=== PATIENT | male | born 2000 | race Caucasian/White ===

== ENCOUNTER 2024-11-11 17:05 | Inpatient (IN) | payer BC, SELFPAY ==
--- NOTE | 2024-11-11 17:15 | ED_ITS ---
HPI - General Adult General Chief complaint: Psychiatric Symptoms Stated complaint: SI w/ plan Time Seen by Provider: 11/11/24 17:12 Source: patient and EMS Mode of arrival: EMS Limitations: no limitations History of Present Illness ED Provider: PRATIK BLUE PA-C HPI narrative: 24 year old male with pmhx significant for anxiety and depression presents to the ED today for evaluation of increasing suicidal ideation x1 week. Reports history of anxiety and depression x7 years. He is currently on medication for this. Denies any recent medication adjustments. 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 Admits to SI over the past week, worsening today. Reports plan to slit his wrists with his pocket knife in his room. Admits to prior self-harm however denies any previous SI attempts. Denies HI. Admits to occasional marijuana use. Denies any other illicit substance use. Reports rare EtOH consumption. Last consumed alcohol approximately 1 month ago. Denies AH/VH/TH. Denies any physical concerns at present. Related Data Home Medications ?Medication ?Instructions ?Recorded ?Confirmed bupropion HCl 150 mg tablet,12 hr 150 mg PO BID 11/11/24 11/11/24 sustained-release escitalopram oxalate 10 mg tablet 10 mg PO BEDTIME 11/11/24 11/11/24 estradiol 2 mg tablet 2 mg PO BEDTIME 11/11/24 11/11/24 estradiol 2 mg tablet 4 mg PO DAILY 11/11/24 11/11/24 gabapentin 300 mg capsule 300 mg PO BEDTIME 11/11/24 11/11/24 spironolactone 100 mg tablet 100 mg PO BEDTIME 11/11/24 11/11/24 spironolactone 100 mg tablet 200 mg PO DAILY 11/11/24 11/11/24 Allergies Allergy/AdvReac Type Severity Reaction Status Date / Time No Known Allergies Allergy Verified 11/11/24 17:31 Review of Systems 2 Review of Systems: Yes all other systems are reviewed and are negative PMFSH Past Medical History Attestation statement: The following information was validated with the patient. Source: old records reviewed and nursing notes reviewed Social History Social History Household Members: None Housing: Other Housing Other:: college dorm room Do you presently have visiting nurse or other home services: No Patient Tobacco Use Status: Never used Tobacco Smoked in Last 30 Days: No Use of substances other than those prescribed or required for medical reasons: Yes Substance Use Type: Marijuana Substance Use Frequency: Occasionally Last Used Substance: Just Prior to Admission Currently Displaying Signs/Symptoms of Drug Intoxication Withdrawal: No Any prior treatment program specific to substance use: No Advance Directives: No Advance Directives Information Provided: No Do you have a plan to hurt others: No Plan Recently lost weight without trying: No Eating poorly because of decreased appetite: No Nutrition Risks: No Nutritional Risk Poor oral hygiene: No Physical Exam ED Vital Signs: Vital Signs - 24 hr 11/11/24 22:21 11/12/24 06:04 11/12/24 14:25 Temperature 97.6 F 97.6 F 97.7 F Pulse Rate 81 60 70 Respiratory Rate 16 18 16 Blood Pressure 125/85 112/67 116/66 Pulse Oximetry 97 98 99 Oxygen Delivery Method Room Air Room Air Room Air BMI result Body Mass Index 30.7 General: Well appearing, in no acute distress. Skin: Warm, dry, intact. No rashes or lesions. Head: Normocephalic, atraumatic. EENT: Hearing is intact b/l. Conjunctiva clear. PERRLA. EOM intact. Moist mucous membranes.? Neck: Supple without LAD Cardiac: Chest wall symmetric. RRR Lungs: Normal respiratory effort without accessory muscle use. CTA bilaterally Abdomen: Soft, non-tender, non-distended Back: No midline spinous or paraspinal tenderness. No step off deformity. Ext: Upper and lower extremities atraumatic, without tenderness, deformity, swelling or erythema Neuro: AOx3. Normal speech. CN 2-12 grossly intact. Ambulating with steady gait. Course Course Course Narrative: CBC without leukocytosis or left shift. no anemia, h&h stable. chemistry without acute electrolyte abnormality requiring intervention. ethanol/ salicylates/ acetaminophen undetectable. UA/UDS pending. > MR reviewed and completed. physician observation initiaed pending care team/ disposition. Reevaluation(s) Reevaluation #1: 0009 -- spoke w/ Kelly from care team. patient will be inpatient bedsearch. Medications Administered Generic Name Dose Route Start Last Admin Trade Name Freq PRN Reason Stop Dose Admin Bupropion HCl 300 mg 11/12/24 09:00 11/12/24 09:00 Bupropion Hcl Xl 300 Mg Tab.Er.24h PO 300 mg DAILY CARLITOS Administration Escitalopram Oxalate 10 mg 11/11/24 18:15 11/12/24 09:00 Escitalopram Oxalate 10 Mg Tablet PO 10 mg DAILY CARLITOS Administration Estradiol 2 mg 11/12/24 21:00 11/11/24 22:21 Estradiol 0.5 Mg Tablet PO 2 mg BEDTIME CARLITOS Administration Estradiol 4 mg 11/12/24 09:00 11/12/24 08:59 Estradiol 0.5 Mg Tablet PO 4 mg DAILY CARLITOS Administration Gabapentin 300 mg 11/11/24 21:00 11/11/24 22:22 Gabapentin 300 Mg Capsule PO 300 mg BEDTIME CARLITOS Administration Spironolactone 200 mg 11/12/24 09:00 11/12/24 08:59 Spironolactone 25 Mg Tablet PO 200 mg DAILY CARLITOS Administration Protocol Medical Decision Making Medical Decision Making [facility] Narrative: 24 year old male with pmhx significant for anxiety and depression presents to the ED today for evaluation of increasing suicidal ideation x1 week. Vital signs stable. He is nontoxic-appearing and in no acute distress. Differential diagnosis includes anemia, electrolyte abnormality, mood disorder, anxiety, depression, SI Presentation not consistent with acute organic causes to include delirium, dementia or drug induced disorders (acute ingestions or withdrawal; no evidence of toxidrome).? Given the H&P, I suspect this patient is suicidal and will require observation. Will consult care team to evaluate the patient. Will also obtain labs for medical clearance. Plan: labs, EKG, ASA/APAP levels, ETOH level, UDS, care team consultation, reassessment Differential Diagnosis Differential Diagnoses: The differential diagnosis associated with the presentation includes as above. Admission/Observation Consideration of admission/observation: Escalation of care including admission/observation considered Lab Data [facility] Lab Attestation statement: I reviewed the patient's lab results. As above 11/11/24 17:43 11/11/24 17:43 Labs: Lab Results 11/11/24 11/11/24 Range/Units 17:43 20:58 WBC 7.8 (4.8-10.8) X10*3/uL RBC 5.45 (4.60-5.80) X10*6/uL Hgb 16.0 (14.0-18.0) g/dl Hct 45.8 (42.0-52.0) % MCV 84.0 (80.0-98.0) fL MCH 29.4 (27.0-33.0) pg MCHC 34.9 (31.0-36.0) g/dl RDW 12.6 (11.0-16.0) % Plt Count 378 (160-400) X10*3/uL MPV 9.5 (9.4-12.4) fL Immature Gran % (Auto) 0.3 (0.0-0.4) % Neut % (Auto) 72.9 (45-73) % Lymph % (Auto) 18.8 L (20-40) % [place] % (Auto) 6.4 (2-11) % Eos % (Auto) 1.3 (0-4) % Baso % (Auto) 0.3 (0-2) % Lymph # (Auto) 1.5 (1.2-4.9) X10*3/uL [place] # (Auto) 0.5 (0.1-1.2) X10*3/uL Eos # (Auto) 0.1 (0.0-0.4) X10*3/uL Baso # (Auto) 0.0 (0.0-0.2) X10*3/uL Abs Immat Gran (auto) 0.02 (0.00-0.03) X10*3/uL Absolute Neuts (auto) 5.7 (2.0-8.3) x10*3/uL Absolute Nucleated RBC 0.000 (0.0-0.012) X10*3/uL Nucleated RBC % (auto) 0.0 (0.0-0.2) /100WBC Sodium 138 (135-145) mmol/L Potassium 4.1 (3.3-5.1) mmol/L Chloride 108 (96-108) mmol/L Carbon Dioxide 23 (22-29) mmol/L Anion Gap 11 L (12-20) BUN 16 (9-16) mg/dL Creatinine 1.10 (0.5-1.4) mg/dL Estim Creat Clear Calc 123.5 Estimated GFR > 60 Random Glucose 121 H (60-115) mg/dL Calcium 9.0 (8.4-10.2) mg/dL Magnesium 2.1 (1.6-2.6) mg/dL Total Bilirubin 1.1 H (0.0-1.0) mg/dL AST 22 (5-37) U/L ALT 29 (0-40) U/L Alkaline Phosphatase 61 (39-117) U/L Total Protein 6.9 (6.5-8.0) g/dL Albumin 4.2 (3.5-5.0) g/dL Lipase 29 (8-78) U/L Urine Color Yellow Urine Appearance Clear Urine pH 6.5 (5.0-9.0) Ur Specific [place] 1.025 (1.005-1.025) Urine Protein Negative (Neg-Trace) mg/dL Urine Glucose (UA) Negative (Negative) mg/dL Urine Ketones Trace (Negative) mg/dL Urine Blood Negative (Negative) Urine Nitrite Negative (Negative) Ur Leukocyte Esterase Negative (Negative) Salicylates < 5.0 L (15-30) mg/dL Urine Opiates Screen Not Detected (Not Detect) Ur Buprenorphine Scrn Not Detected (Not Detect) ng/mL Ur Oxycodone Screen Not Detected (Not Detect) ng/mL Urine Methadone Screen Not Detected (Not Detect) ng/mL Urine Fentanyl Screen Not Detected (Not Detect) Acetaminophen < 3 (<30) mcg/mL Ur Barbiturates Screen Not Detected (Not Detect) Ur Phencyclidine Scrn Not Detected (Not Detect) Ur Amphetamines Screen Not Detected (Not Detect) U Benzodiazepines Scrn Not Detected (Not Detect) Urine Cocaine Screen Not Detected (Not Detect) U Marijuana (THC) Screen POSITIVE H (Not Detect) Ethyl Alcohol < 10 mg/dL Chronic Conditions Patient?s care impacted by: Other (Anxiety, depression) Social Determinants Patient?s care significantly limited by Social Determinants of Health including: Other Social Determinant of Health Critical Care Time Critical Care Time Critical Care Time: No Discharge Plan Discharge Clinical Impression: Depression, Suicidal ideation Patient Disposition: Admitted As Inpatient Interventions: [place]-Suicide Risk Severity Scale Last Done: 11/11/24 17:39 Admission Worksheet (ED) Last Done: 11/12/24 16:11 Discharge Date/Time: 11/12/24 16:12
[2024-11-11 17:29] VITALS: BP 132/82; BP 132/84; PULSE 83; PULSE 85; RESP 18; TEMP 37; O2SAT 96; O2SAT 97; BMI 30.7
[2024-11-11 17:38] VITALS: RESP 16
[2024-11-11 17:46] LABS: MANUAL DIFF FLAG NO
[2024-11-11 17:50] LABS: Basophils Percent Auto 0.3 % (0-2); Eosinophils Absolute Auto 0.1 X10*3/uL (0.0-0.4); Eosinophils Percent Auto 1.3 % (0-4); Hematocrit 45.8 % (42.0-52.0); Imm Gran Abs Auto 0.02 X10*3/uL (0.00-0.03); Imm Gran Pct Auto 0.3 % (0.0-0.4); Lymphocytes Absolute Auto 1.5 X10*3/uL (1.2-4.9); Lymphocytes Percent Auto 18.8 % (20-40); Mean Corpuscular HGB Conc 34.9 g/dl (31.0-36.0); Mean Corpuscular Hemoglobin 29.4 pg (27.0-33.0); Mean Platelet Volume 9.5 fL (9.4-12.4); Monocytes Absolute Auto 0.5 X10*3/uL (0.1-1.2); Monocytes Percent Auto 6.4 % (2-11); Neutrophils Absolute Auto 5.7 x10*3/uL (2.0-8.3); Neutrophils Percent Auto 72.9 % (45-73); Platelet Count 378 X10*3/uL (160-400); Red Blood Count 5.45 X10*6/uL (4.60-5.80); Red Cell Distribution Width 12.6 % (11.0-16.0); White Blood Count 7.8 X10*3/uL (4.8-10.8)
--- NOTE | 2024-11-11 17:51 | PC.NURSE ---
Chi comes in from home today reporting SI with a plan to cut his wrists. 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 He reports that he has struggled with suicidal ideation for 7-8 years now and but recently his suicidal ideation has become more intense in nature. Pt is calm and cooperative, offering no complaints to this RN, denies pain. Patient verbalizes understanding of plan of care for med clearance and CARE team swetha
--- NOTE | 2024-11-11 18:06 | PC.NURSE ---
RE: med rec This RN completed medication reconciliation by speaking with patient. Pt reports for both the Estradiol and the Spironolactone that the dosage is TID however they take the medications as 2 tablets in the morning and 1 in the evening . pt also reports that he takes 300mg Gabapentin solely at nighttime
[2024-11-11 18:18] LABS: Acetaminophen LAB < 3 mcg/mL (<30); Alanine Aminotransferase 29 U/L (0-40); Albumin Level 4.2 g/dL (3.5-5.0); Alkaline Phosphatase 61 U/L (39-117); Anion Gap 11 (12-20); Aspartate Amino Transferase 22 U/L (5-37); Bilirubin Total 1.1 mg/dL (0.0-1.0); Blood Urea Nitrogen 16 mg/dL (9-16); Carbon Dioxide 23 mmol/L (22-29); Chloride 108 mmol/L (96-108); Creatinine Clr Calc Pharmacy 123.5; Estimated Glomerular Filt Rate > 60; Ethanol < 10 mg/dL; Glucose Random 121 mg/dL (60-115); Lipase 29 U/L (8-78); Magnesium 2.1 mg/dL (1.6-2.6); Potassium 4.1 mmol/L (3.3-5.1); Salicylate < 5.0 mg/dL (15-30); Sodium 138 mmol/L (135-145); Total Protein 6.9 g/dL (6.5-8.0)
--- OUTSIDE RECORDS SUMMARY | 2024-11-11 20:22 | XMS_ITS ---
Author Name [facility] Organization Unknown Results Test Name/Text Value Interpretation Date Range Source POC COVID RAPID ANTIGEN Normal [id number] NEDAL History of Medication Use Medication Directions Dispensed Refills Start Date End Date Stat us Benzonatate 200 mg capsule 07/07/2024 active Problems Problem Status Onset Date Problem Type Date of Resoluti on Source No pertinent past medical history active ProblemAct [facility] Assessment and Plan ID Update Date Source Alert Text [place] [facility] - [id number] 06/29/2022 [place] [facility] - [id number] COVID Vaccination: This patient has received the MOD, COVID-19, mRNA, Bivalent, 0.5 or 0.25mL vaccination on 06/29/2022 with lot number [id number] at [facility] [address] [place] [address]. [place] [facility] - [id number] 11/24/2020 [place] [facility] - [id number] COVID Vaccination: This patient has received the PFR, COVID-19, mRNA, LNP-S, PF, 0.3mL vaccination on 11/24/2020 with lot number [id number] at [facility] [address] [place] [address]. Encounters Encounter Type Encounter Reason Primary Diagnosis Location Date Ambulatory sore throat, cough, sob SELF PAY Cough, unspecified [facility] 07/07/2024 Care Team Organization Name Specialty Phone Email Start Date End Da te [facility] 07/08/2024 07/17/2024 [facility] ent Care - [place] 07/07/2024 [facility] [facility] 08/23/2023 0 01/07/2024 [facility] 06/10/2022 024 [facility] 02/11/2020 0811/2019 [facility] ent Care - [place] 02/11/2020 02/11/2020
--- NOTE | 2024-11-11 21:00 | PHA.MEDREC ---
Pharmacy Consult ? Medication Reconciliation Pharmacy has completed the medication reconciliation. MED REC DONE BY NURSING AND PHARMACY. UTILIZED CLAIMS HISTORY AND SPOKE TO PATIENT TO CONFIRM HOW AND WHEN HE TAKES HIS MEDICATION. PT ONLY TAKES GABAPENTIN ONCE DAILY.
[2024-11-11 21:09] LABS: Appearance Urine Clear; Color Urine Yellow; Glucose Urine UA Negative (Negative); Leukocyte Esterase Urine Negative (Negative); Nitrite Urine Negative (Negative); PH 6.5 (5.0-9.0); Specific Gravity - Urine 1.025 (1.005-1.025); Urine Blood Negative (Negative); Urine Ketones Trace mg/dL (Negative); Urine Protein Negative (Neg-Trace)
[2024-11-11 21:19] LABS: Amphetamine Screen Urine Not Detected (Not Detect); Barbiturates, Urine Not Detected (Not Detect); Benzodiazepines Screen Urine Not Detected (Not Detect); Buprenorphine Scr Not Detected (Not Detect); Cannabinoid Screen Urine POSITIVE (Not Detect); Cocaine Screen Urine Not Detected (Not Detect); Fentanyl, urine Not Detected (Not Detect); Methadone Screen, Urine Not Detected (Not Detect); Opiate Screen Urine Not Detected (Not Detect); Oxycodone Screen Urine Not Detected (Not Detect); Phencyclidine Screen Urine Not Detected (Not Detect)
[2024-11-11 22:21] VITALS: BP 125/85; PULSE 81; RESP 16; TEMP 36.4; O2SAT 97
[2024-11-11] MEDS: estradioL 0.5 MG TABLET 2 MG PO (22:21)
[2024-11-11] MEDS: Gabapentin 300 MG CAPSULE PO (22:22)
[2024-11-11] MEDS: Escitalopram Oxalate 10 MG TABLET PO (22:25)
--- NOTE | 2024-11-12 | ECG_ITS ---
Test Reason : RULE OUT PROLONGED QTC Blood Pressure : */* mmHG Vent. Rate : 60 BPM Atrial Rate : 60 BPM P-R Int : 138 ms QRS Dur : 114 ms QT Int : 416 ms P-R-T Axes : 58 69 70 degrees QTcB Int : 416 ms Normal sinus rhythm Normal ECG No previous ECGs available Referred By: Dao Haddad Electronically Signed By: DARIO MOSES
--- NOTE | 2024-11-12 06:00 | PC.NURSE ---
Patient slept through the night, no distress observed/reported, med and meals compliant, 15 minutes safety check, no behavior and safety concerns, disposition per care team is section 12 inpatient bed search, will continue to monitor
[2024-11-12 06:04] VITALS: BP 112/67; PULSE 60; RESP 18; TEMP 36.4; O2SAT 98
--- NOTE | 2024-11-12 07:23 | PC.NURSE ---
Assumed care of patient at 0645, patient appears to be in no apparent distress this am, calm and cooperative, sitting in chair eating breakfast. Continue plan of care for IPLOC
[2024-11-12] MEDS: Spironolactone 25 MG TABLET 200 MG PO (08:59)
[2024-11-12] MEDS: estradioL 0.5 MG TABLET 4 MG PO (08:59)
[2024-11-12] MEDS: buPROPion HCl XL 300 MG TAB.ER.24H PO (09:00)
[2024-11-12] MEDS: Escitalopram Oxalate 10 MG TABLET PO (09:00)
--- NOTE | 2024-11-12 09:52 | PC.NURSE ---
Pt calm and cooperative, reading book in bed at this time
[2024-11-12 14:25] VITALS: BP 116/66; PULSE 70; RESP 16; TEMP 36.5; O2SAT 99
[2024-11-12 16:37] VITALS: BP 117/74; PULSE 101; RESP 18; TEMP 37.1; O2SAT 96
[2024-11-12 16:38] VITALS: BMI 29.2
--- NOTE | 2024-11-12 17:24 | PC.ADMIT ---
24 y/o Chi Girard was admitted to at 1410 from [facility] for depression and SI with plan to slit their wrists with a pocket knife. Pt prefers to be called Ermias and uses they/them pronouns. 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 Pt has a hx of anxiety/depression x 8 yrs. Pt has weekly therapy appointments and monthly psychiatry appointments, and has no previous psych admissions. 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 Pt reported SI to their safia at their school, and was then brought to the hospital for evaluation. Pt denied past SA, however reported around 7 yrs ago they held a blade to their wrist contemplating suicide, but decided not to harm self. Pt reported this was the second time they have felt suicidal, and wanted to seek help before they acted on it. Pt reported they are consistent with taking prescribed medication, which consists of Lexapro, Wellbutrin, and Gabapentin. Pt stated they had been taking Lexapro and Gabapentin for a few yrs, but Wellbutrin was added approximately two months ago. Pt also reported they started hormone replacement therapy (HRT) in September, but reported they had started to notice an increase in their depression level prior to starting HRT. Pt denied nicotine use, and reported occasional ETOH use Maybe I have a drink once a month . Pt also reported they use marijuana. Tox screen positive for marijuana. Pt denied HI and denied AVH. Pt denied active plan to harm self on the unit, and stated they could seek out staff if feeling unsafe. Pt requested to meet with hospital internet marketer, and request was sent to Chaplain Montiel. Pt was cooperative with admission process. Safety/skin check unremarkable. Pt signed releases and was placed on 15 minute checks for safety.
[2024-11-12] MEDS: estradioL 0.5 MG TABLET 2 MG PO (20:39)
[2024-11-12] MEDS: Spironolactone 25 MG TABLET 100 MG PO (20:39)
[2024-11-12] MEDS: Gabapentin 300 MG CAPSULE PO (20:40)
[2024-11-12] MEDS: traZODone HCL 50 MG TABLET PO (20:40)
[2024-11-13 08:00] VITALS: BP 102/62; PULSE 71; RESP 18; TEMP 36.4; O2SAT 99
[2024-11-13 08:05] LABS: Estimated Average Glucose 103 mg/dL; Hemoglobin A1C 144.0249 umol/L; Hemoglobin A1c % 5.2 % (<6.0); Total Hemoglobin (HGBA1C) 4264.6226 umol/L
[2024-11-13 08:18] LABS: Alanine Aminotransferase 34 U/L (0-40); Albumin Level 4.2 g/dL (3.5-5.0); Alkaline Phosphatase 62 U/L (39-117); Anion Gap 11 (12-20); Aspartate Amino Transferase 21 U/L (5-37); Bilirubin Total 1.1 mg/dL (0.0-1.0); Blood Urea Nitrogen 15 mg/dL (9-16); Calcium 9.9 mg/dL (8.4-10.2); Carbon Dioxide 28 mmol/L (22-29); Chloride 103 mmol/L (96-108); Cholesterol 201 mg/dL (<200); Creatinine Clr Calc Pharmacy 137.8; Estimated Glomerular Filt Rate > 60; Glucose Random 96 mg/dL (60-115); HDL Cholesterol 41 mg/dL (>40); LDL Cholesterol Calculated 125 mg/dL (<100); Potassium 3.8 mmol/L (3.3-5.1); Sodium 138 mmol/L (135-145); Total Protein 7.2 g/dL (6.5-8.0); Triglycerides 179 mg/dL (<150)
[2024-11-13] MEDS: Escitalopram Oxalate 10 MG TABLET PO ×2 (08:25→14:23)
[2024-11-13] MEDS: buPROPion HCl XL 300 MG TAB.ER.24H PO (08:25)
[2024-11-13 08:31] LABS: TSH reflex Free T4 1.02 uIU/mL (0.32-4.0)
[2024-11-13] MEDS: estradioL 0.5 MG TABLET 4 MG PO (09:23)
[2024-11-13] MEDS: Spironolactone 25 MG TABLET 200 MG PO (09:24)
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
[2024-11-13 20:00] VITALS: BP 131/71; PULSE 100; RESP 18; TEMP 36.3; O2SAT 98
[2024-11-13] MEDS: Spironolactone 25 MG TABLET 100 MG PO (22:03)
[2024-11-13] MEDS: estradioL 0.5 MG TABLET 2 MG PO (22:03)
[2024-11-13] MEDS: Gabapentin 300 MG CAPSULE PO (22:04)
[2024-11-14 08:00] VITALS: BP 102/61; PULSE 72; RESP 18; TEMP 36.6; O2SAT 98
[2024-11-14] MEDS: Spironolactone 25 MG TABLET 200 MG PO (08:37)
[2024-11-14] MEDS: estradioL 0.5 MG TABLET 4 MG PO (08:38)
[2024-11-14] MEDS: Escitalopram Oxalate 20 MG TABLET PO (08:40)
[2024-11-14] MEDS: buPROPion HCl XL 150 MG TAB.ER.24H 450 MG PO (08:40)
--- NOTE | 2024-11-14 09:58 | HO.PSYCHPN ---
Subjective Subjective Date of Service: 11/14/24 Reason For Visit: SI Interim History: met with pt; discussed with team slept well; feeling better; SI pretty much resolving. Talked about chronic pessimism...but fights against it shared about they feels emotionally hurt all the time regarding their sensitive nature and empathy for people suffering in the world. Discussed transitioning which started 2 months ago; thinks it could be somewhat contributory but benefits of it outway any side-effects. Mental Status Exam Mental Status Exam Narrative: Pt is alert and oriented; behavior is cooperative, friendly and calm; patient is not in distress; dressed in casual attire with long, unkempt hair but adequate hygiene; mood is described as little better and affect congruent; eye contact appropriate; Speech is normal rate, volume and prosody and not pressured; some psychomotor retardation present; thought process is organized and goal directed; Thought content is on dealing with hopeless thoughts, stresses, treatment; otherwise pertinent to relevant topics and without any delusional content, paranoid ideations or grandiosity; SI resolving; no HI. Denies AVH and there is no evidence of perceptual disturbance. Patients insight and judgment impaired but improving. Diagnostics Vital Signs (24Hr): Vital Signs - 24 hr 11/13/24 20:00 11/14/24 08:00 Temperature 97.3 F 97.8 F Pulse Rate 100 72 Respiratory Rate 18 18 Blood Pressure 131/71 102/61 Pulse Oximetry 98 98 Oxygen Delivery Method Room Air Room Air BMI result Body Mass Index 29.2 Labs 11/11/24 17:43 11/13/24 07:43 Labs: Laboratory Results - last 48 hr 11/13/24 07:43 Sodium 138 Potassium 3.8 Chloride 103 Carbon Dioxide 28 Anion Gap 11 L BUN 15 Creatinine 1.05 Estim Creat Clear Calc 137.8 Estimated GFR > 60 Random Glucose 96 Estimat Average Glucose 103 Hemoglobin A1c % 5.2 Calcium 9.9 D Total Bilirubin 1.1 H AST 21 ALT 34 Alkaline Phosphatase 62 Total Protein 7.2 Albumin 4.2 Triglycerides 179 H Cholesterol 201 H LDL Cholesterol, Calc 125 H HDL Cholesterol 41 TSH 1.02 Medications Medications Current Medications Acetaminophen (Acetaminophen 325 Mg Tablet) 650 mg PO Q6H PRN PRN Reason: Headache/Pain, Scale 1-10 Al Hydroxide/Mg Hydroxide (Magnesium Hydrox/Alum Hydrox 30 Ml Oral.Susp) 30 ml PO Q6H PRN PRN Reason: Heartburn/Nausea Bupropion HCl (Bupropion Hcl Xl 150 Mg Tab.Er.24h) 450 mg PO DAILY [facility] Last Admin: 11/14/24 08:40 Dose: 450 mg Clonidine HCl (Clonidine Hcl 0.1 Mg Tablet) 0.1 mg PO Q4H PRN; Protocol PRN Reason: moderate anxiety Escitalopram Oxalate (Escitalopram Oxalate 20 Mg Tablet) 20 mg PO DAILY [facility] Last Admin: 11/14/24 08:40 Dose: 20 mg Estradiol (Estradiol 0.5 Mg Tablet) 2 mg PO BEDTIME [facility] Last Admin: 11/13/24 22:03 Dose: 2 mg Estradiol (Estradiol 0.5 Mg Tablet) 4 mg PO DAILY [facility] Last Admin: 11/14/24 08:38 Dose: 4 mg Gabapentin (Gabapentin 300 Mg Capsule) 300 mg PO BEDTIME [facility] Last Admin: 11/13/24 22:04 Dose: 300 mg Hydroxyzine HCl (Hydroxyzine Hcl 25 Mg Tablet) 25 mg PO Q6H PRN PRN Reason: mild anxiety Magnesium Hydroxide (Milk Of Magnesia 30 Ml Oral.Susp) 30 ml PO DAILY PRN PRN Reason: Constipation Nicotine (Nicotine 21 Mg Patch.Td24) 21 mg TRANSDERMA DAILY PRN PRN Reason: smoking cessation Nicotine Polacrilex (Nicotine Polacrilex 2 Mg Gum) 4 mg BUCCAL Q2H PRN PRN Reason: Nicotine Cravings Olanzapine (Olanzapine 5 Mg Tablet) 5 mg PO TID PRN PRN Reason: agitation Spironolactone (Spironolactone 25 Mg Tablet) 100 mg PO BEDTIME [facility]; Protocol Last Admin: 11/13/24 22:03 Dose: 100 mg Spironolactone (Spironolactone 25 Mg Tablet) 200 mg PO DAILY [facility]; Protocol Last Admin: 11/14/24 08:37 Dose: 200 mg Trazodone HCl (Trazodone Hcl 50 Mg Tablet) 50 mg PO BEDTIME MRX1 PRN PRN Reason: Insomnia Last Admin: 11/12/24 20:40 Dose: 50 mg Allergies Allergies Allergy/AdvReac Type Severity Reaction Status Date / Time No Known Allergies Allergy Verified 11/11/24 17:31 Assessment & Plan Assessment & Plan (1) MDD (major depressive disorder), recurrent severe, without psychosis: Status: Acute Code(s): F33.2 - Major depressive disorder, recurrent severe without psychotic features (2) Autistic spectrum disorder: Status: Acute Code(s): F84.0 - Autistic disorder (3) Anxiety disorder, unspecified: Status: Acute Code(s): F41.9 - Anxiety disorder, unspecified Plan HPI: Patient is a 24-year-old trans male, 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 Patient reports that they have chronic SI which comes and goes but is generally fleeting and tolerable; they have a history of severe depressive episodes last for over 2 weeks, but has found Lexapro and recently added Wellbutrin to be at least partially helpful. However, despite medications and therapy patient reports a slowly growing wave of depression that has been building over the past several months. 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 Patient's SI increased and pt made a suicide note; they started to form vague plans though never ended up having any intent and instead patient reached out to family members who reminded them that hope and treatment are available. Patient decided to come to the hospital for safety and treatment. Patient denies history of manic type behaviors or episodes; denies AVH; patient denies history of trauma. Denies drug or alcohol abuse other than intermittent cannabis Formulation/clinical reasoning: Chronic depression partially treated by current medications, that has been worsening over the past months. Increased Suicidality seems to have been triggered by recent financial stress; patient benefits from supportive family who helped them reconsider suicide and instead reach out for help. Regarding medication: Since both Lexapro and Wellbutrin have been at least partially helpful, patient agrees to increase both; patient has been on Lexapro 25 mg in the past which was well tolerated and effective. Patient does not want to risk being underdosed and so wants to increase both medications at the same time with which comic book writer agrees. Adding clonidine as a p.r.n. for anxiety Hospital course: 11/14 slept well; feeling better; SI pretty much resolving. Talked about chronic pessimism...but fights against it shared about they feels emotionally hurt all the time regarding their sensitive nature and empathy for people suffering in the world. Discussed transitioning which started 2 months ago; thinks it could be somewhat contributory but benefits of it outway any side-effects. Plan: CV Q 15 minute checks Increase Lexapro to 20 mg daily Increase Wellbutrin XL to 450 mg daily Add clonidine p.r.n. for anxiety Otherwise continue home medication regimen Patient educated on: diagnosis, medication risk/benefits and therapeutic strategies Informed Consent: understands Reason for continued inpatient stay Substantial Risk for: rapid decompensation Time Spent With Patient Time: Total time managing care of this patient today ____ minutes.
[2024-11-14 20:00] VITALS: BP 95/61; PULSE 101; TEMP 36.9; O2SAT 99
[2024-11-14 20:31] VITALS: BP 95/61
[2024-11-14] MEDS: Spironolactone 25 MG TABLET 100 MG PO (20:31)
[2024-11-14] MEDS: estradioL 0.5 MG TABLET 2 MG PO (20:31)
[2024-11-14] MEDS: traZODone HCL 50 MG TABLET PO (20:31)
[2024-11-14] MEDS: Gabapentin 300 MG CAPSULE PO (20:32)
--- NOTE | 2024-11-15 07:31 | P.PNPSI_ITS ---
Subjective Subjective Date of Service: 11/15/24 Reason For Visit: SI Interim History: Pt seen and discussed with the team. He reports he is well, feels prepared for discharge Denies issues of concern Tolerating medications, denies SE Medication Compliance: Yes Side effects from medications: No Attending Groups: Intermittent Review of Systems Acute medical concerns: No Review of Systems Review of Systems Denies Mental Status Exam Mental Status Exam Patient Appearance: Appropriate Patient Orientation: Person, Place, Time and Situation Level of Consciousness: Alert Patient Behavior: Talkative and Good Eye Contact Mood Description: Constricted Affect Description: Constricted Patient Cognition Impaired: No Ability to Follow Directions: Good Speech Pattern: Spontaneous Speech Memory Description: Intact Hallucinations: None Delusions: Not Present Thought Process: Intact and Goal Oriented Thought Content: positive for Intact and positive for Goal Oriented Judgement: Good Diagnostics Vital Signs (24Hr): Vital Signs - 24 hr 11/14/24 08:00 11/14/24 20:00 11/14/24 20:31 Temperature 97.8 F 98.4 F Pulse Rate 72 101 H Respiratory Rate 18 Blood Pressure 102/61 95/61 95/61 Pulse Oximetry 98 99 Oxygen Delivery Method Room Air Room Air BMI result Body Mass Index 29.2 Labs 11/11/24 17:43 11/13/24 07:43 Labs: Laboratory Results - last 48 hr 11/13/24 07:43 Sodium 138 Potassium 3.8 Chloride 103 Carbon Dioxide 28 Anion Gap 11 L BUN 15 Creatinine 1.05 Estim Creat Clear Calc 137.8 Estimated GFR > 60 Random Glucose 96 Estimat Average Glucose 103 Hemoglobin A1c % 5.2 Calcium 9.9 D Total Bilirubin 1.1 H AST 21 ALT 34 Alkaline Phosphatase 62 Total Protein 7.2 Albumin 4.2 Triglycerides 179 H Cholesterol 201 H LDL Cholesterol, Calc 125 H HDL Cholesterol 41 TSH 1.02 Medications Medications Current Medications Acetaminophen (Acetaminophen 325 Mg Tablet) 650 mg PO Q6H PRN PRN Reason: Headache/Pain, Scale 1-10 Al Hydroxide/Mg Hydroxide (Magnesium Hydrox/Alum Hydrox 30 Ml Oral.Susp) 30 ml PO Q6H PRN PRN Reason: Heartburn/Nausea Bupropion HCl (Bupropion Hcl Xl 150 Mg Tab.Er.24h) 450 mg PO DAILY [facility] Last Admin: 11/14/24 08:40 Dose: 450 mg Clonidine HCl (Clonidine Hcl 0.1 Mg Tablet) 0.1 mg PO Q4H PRN; Protocol PRN Reason: moderate anxiety Escitalopram Oxalate (Escitalopram Oxalate 20 Mg Tablet) 20 mg PO DAILY [facility] Last Admin: 11/14/24 08:40 Dose: 20 mg Estradiol (Estradiol 0.5 Mg Tablet) 2 mg PO BEDTIME [facility] Last Admin: 11/14/24 20:31 Dose: 2 mg Estradiol (Estradiol 0.5 Mg Tablet) 4 mg PO DAILY [facility] Last Admin: 11/14/24 08:38 Dose: 4 mg Gabapentin (Gabapentin 300 Mg Capsule) 300 mg PO BEDTIME [facility] Last Admin: 11/14/24 20:32 Dose: 300 mg Hydroxyzine HCl (Hydroxyzine Hcl 25 Mg Tablet) 25 mg PO Q6H PRN PRN Reason: mild anxiety Magnesium Hydroxide (Milk Of Magnesia 30 Ml Oral.Susp) 30 ml PO DAILY PRN PRN Reason: Constipation Nicotine (Nicotine 21 Mg Patch.Td24) 21 mg TRANSDERMA DAILY PRN PRN Reason: smoking cessation Nicotine Polacrilex (Nicotine Polacrilex 2 Mg Gum) 4 mg BUCCAL Q2H PRN PRN Reason: Nicotine Cravings Olanzapine (Olanzapine 5 Mg Tablet) 5 mg PO TID PRN PRN Reason: agitation Spironolactone (Spironolactone 25 Mg Tablet) 100 mg PO BEDTIME [facility]; Protocol Last Admin: 11/14/24 20:31 Dose: 100 mg Spironolactone (Spironolactone 25 Mg Tablet) 200 mg PO DAILY [facility]; Protocol Last Admin: 11/14/24 08:37 Dose: 200 mg Trazodone HCl (Trazodone Hcl 50 Mg Tablet) 50 mg PO BEDTIME MRX1 PRN PRN Reason: Insomnia Last Admin: 11/14/24 20:31 Dose: 50 mg Allergies Allergies Allergy/AdvReac Type Severity Reaction Status Date / Time No Known Allergies Allergy Verified 11/11/24 17:31 Assessment & Plan Assessment & Plan (1) MDD (major depressive disorder), recurrent severe, without psychosis: Status: Acute Code(s): F33.2 - Major depressive disorder, recurrent severe without psychotic features (2) Autistic spectrum disorder: Status: Acute Code(s): F84.0 - Autistic disorder (3) Anxiety disorder, unspecified: Status: Acute Code(s): F41.9 - Anxiety disorder, unspecified Plan HPI: Patient is a 24-year-old trans male, senior at [employer], with history of MDD, anxiety, ASD who presents for worsening depression and suicidal ideation with a plan in the face of mounting psychosocial stressors. Patient reports that they have chronic SI which comes and goes but is generally fleeting and tolerable; they have a history of severe depressive episodes last for over 2 weeks, but has found Lexapro and recently added Wellbutrin to be at least partially helpful. However, despite medications and therapy patient reports a slowly growing wave of depression that has been building over the past several months. This past week, their depression worsened as patient struggled with the stress at school and poor associate financial representative package; this financial stress triggered a bout of despair and hopelessness and patient started thinking I can not keep going on like this... Patient's SI increased and pt made a suicide note; they started to form vague plans though never ended up having any intent and instead patient reached out to family members who reminded them that hope and treatment are available. Patient decided to come to the hospital for safety and treatment. Patient denies history of manic type behaviors or episodes; denies AVH; patient denies history of trauma. Denies drug or alcohol abuse other than intermittent cannabis Formulation/clinical reasoning: Chronic depression partially treated by current medications, that has been worsening over the past months. Increased Suicidality seems to have been triggered by recent financial stress; patient benefits from supportive family who helped them reconsider suicide and instead reach out for help. Regarding medication: Since both Lexapro and Wellbutrin have been at least partially helpful, patient agrees to increase both; patient has been on Lexapro 25 mg in the past which was well tolerated and effective. Patient does not want to risk being underdosed and so wants to increase both medications at the same time with which personal lines underwriter agrees. Adding clonidine as a p.r.n. for anxiety Hospital course: 11/14 slept well; feeling better; SI pretty much resolving. Talked about chronic pessimism...but fights against it shared about they feels emotionally hurt all the time regarding their sensitive nature and empathy for people suffering in the world. Discussed transitioning which started 2 months ago; thinks it could be somewhat contributory but benefits of it outway any side-effects. 11/15: Continue plan Plan: CV Q 15 minute checks Increase Lexapro to 20 mg daily Increase Wellbutrin XL to 450 mg daily Add clonidine p.r.n. for anxiety Otherwise continue home medication regimen Reason for continued inpatient stay Substantial Risk for: rapid decompensation Time Spent With Patient Time: Total time managing care of this patient today ____ minutes.
[2024-11-15 08:00] VITALS: BP 102/57; PULSE 64; RESP 18; TEMP 36.9; O2SAT 98
[2024-11-15] MEDS: buPROPion HCl XL 150 MG TAB.ER.24H 450 MG PO (08:43)
[2024-11-15] MEDS: Escitalopram Oxalate 20 MG TABLET PO (08:44)
[2024-11-15] MEDS: Spironolactone 25 MG TABLET 200 MG PO (08:44)
[2024-11-15] MEDS: estradioL 0.5 MG TABLET 4 MG PO (08:45)
[2024-11-15] MEDS: Acetaminophen 325 MG TABLET 650 MG PO (18:45)
[2024-11-15 19:37] VITALS: BP 117/77; PULSE 102; TEMP 36.6; O2SAT 96
[2024-11-15 20:10] VITALS: BP 117/77
[2024-11-15] MEDS: Spironolactone 25 MG TABLET 100 MG PO (20:10)
[2024-11-15] MEDS: Gabapentin 300 MG CAPSULE PO (20:10)
[2024-11-15] MEDS: traZODone HCL 50 MG TABLET PO ×2 (20:10→21:39)
[2024-11-15] MEDS: estradioL 0.5 MG TABLET 2 MG PO (20:10)
--- NOTE | 2024-11-16 05:49 | HO.PSYCHPN ---
Subjective Subjective Date of Service: 11/16/24 Reason For Visit: SI Interim History: Met with pt and discussed with team. Pt asking to discharge today. Discussed that we will need primary team input. Discussed his plans, thoughts about finishing school, what he wants to do Denies med SE Denies SI,HI,AH,VH. No sx of acute alayna or psychosis Medication Compliance: Yes Side effects from medications: No Review of Systems Acute medical concerns: No Medical Review of Systems: unchanged Review of Systems Review of Systems Denies Mental Status Exam Mental Status Exam Patient Appearance: Appropriate Patient Orientation: Person, Place, Time and Situation Level of Consciousness: Alert Patient Behavior: Talkative and Good Eye Contact Mood Description: Constricted Affect Description: Constricted Patient Cognition Impaired: No Ability to Follow Directions: Good Speech Pattern: Spontaneous Speech Memory Description: Intact Hallucinations: None Delusions: Not Present Thought Process: Intact and Goal Oriented Thought Content: positive for Intact and positive for Goal Oriented Judgement: Good Diagnostics Vital Signs (24Hr): Vital Signs - 24 hr 11/15/24 08:00 11/15/24 19:37 11/15/24 20:10 Temperature 98.5 F 97.8 F Pulse Rate 64 102 H Respiratory Rate 18 Blood Pressure 102/57 L 117/77 117/77 Pulse Oximetry 98 96 Oxygen Delivery Method Room Air Room Air BMI result Body Mass Index 29.2 Labs 11/11/24 17:43 11/13/24 07:43 Medications Medications Current Medications Acetaminophen (Acetaminophen 325 Mg Tablet) 650 mg PO Q6H PRN PRN Reason: Headache/Pain, Scale 1-10 Last Admin: 11/15/24 18:45 Dose: 650 mg Al Hydroxide/Mg Hydroxide (Magnesium Hydrox/Alum Hydrox 30 Ml Oral.Susp) 30 ml PO Q6H PRN PRN Reason: Heartburn/Nausea Bupropion HCl (Bupropion Hcl Xl 150 Mg Tab.Er.24h) 450 mg PO DAILY [facility] Last Admin: 11/15/24 08:43 Dose: 450 mg Clonidine HCl (Clonidine Hcl 0.1 Mg Tablet) 0.1 mg PO Q4H PRN; Protocol PRN Reason: moderate anxiety Escitalopram Oxalate (Escitalopram Oxalate 20 Mg Tablet) 20 mg PO DAILY [facility] Last Admin: 11/15/24 08:44 Dose: 20 mg Estradiol (Estradiol 0.5 Mg Tablet) 2 mg PO BEDTIME [facility] Last Admin: 11/15/24 20:10 Dose: 2 mg Estradiol (Estradiol 0.5 Mg Tablet) 4 mg PO DAILY [facility] Last Admin: 11/15/24 08:45 Dose: 4 mg Gabapentin (Gabapentin 300 Mg Capsule) 300 mg PO BEDTIME [facility] Last Admin: 11/15/24 20:10 Dose: 300 mg Hydroxyzine HCl (Hydroxyzine Hcl 25 Mg Tablet) 25 mg PO Q6H PRN PRN Reason: mild anxiety Magnesium Hydroxide (Milk Of Magnesia 30 Ml Oral.Susp) 30 ml PO DAILY PRN PRN Reason: Constipation Nicotine (Nicotine 21 Mg Patch.Td24) 21 mg TRANSDERMA DAILY PRN PRN Reason: smoking cessation Nicotine Polacrilex (Nicotine Polacrilex 2 Mg Gum) 4 mg BUCCAL Q2H PRN PRN Reason: Nicotine Cravings Olanzapine (Olanzapine 5 Mg Tablet) 5 mg PO TID PRN PRN Reason: agitation Spironolactone (Spironolactone 25 Mg Tablet) 100 mg PO BEDTIME [facility]; Protocol Last Admin: 11/15/24 20:10 Dose: 100 mg Spironolactone (Spironolactone 25 Mg Tablet) 200 mg PO DAILY [facility]; Protocol Last Admin: 11/15/24 08:44 Dose: 200 mg Trazodone HCl (Trazodone Hcl 50 Mg Tablet) 50 mg PO BEDTIME MRX1 PRN PRN Reason: Insomnia Last Admin: 11/15/24 21:39 Dose: 50 mg Allergies Allergies Allergy/AdvReac Type Severity Reaction Status Date / Time No Known Allergies Allergy Verified 11/11/24 17:31 Assessment & Plan Assessment & Plan (1) MDD (major depressive disorder), recurrent severe, without psychosis: Status: Acute Code(s): F33.2 - Major depressive disorder, recurrent severe without psychotic features (2) Autistic spectrum disorder: Status: Acute Code(s): F84.0 - Autistic disorder (3) Anxiety disorder, unspecified: Status: Acute Code(s): F41.9 - Anxiety disorder, unspecified Plan HPI: Patient is a 24-year-old trans male, senior at [employer], with history of MDD, anxiety, ASD who presents for worsening depression and suicidal ideation with a plan in the face of mounting psychosocial stressors. Patient reports that they have chronic SI which comes and goes but is generally fleeting and tolerable; they have a history of severe depressive episodes last for over 2 weeks, but has found Lexapro and recently added Wellbutrin to be at least partially helpful. However, despite medications and therapy patient reports a slowly growing wave of depression that has been building over the past several months. 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 Patient's SI increased and pt made a suicide note; they started to form vague plans though never ended up having any intent and instead patient reached out to family members who reminded them that hope and treatment are available. Patient decided to come to the hospital for safety and treatment. Patient denies history of manic type behaviors or episodes; denies AVH; patient denies history of trauma. Denies drug or alcohol abuse other than intermittent cannabis Formulation/clinical reasoning: Chronic depression partially treated by current medications, that has been worsening over the past months. Increased Suicidality seems to have been triggered by recent financial stress; patient benefits from supportive family who helped them reconsider suicide and instead reach out for help. Regarding medication: Since both Lexapro and Wellbutrin have been at least partially helpful, patient agrees to increase both; patient has been on Lexapro 25 mg in the past which was well tolerated and effective. Patient does not want to risk being underdosed and so wants to increase both medications at the same time with which card writer hand agrees. Adding clonidine as a p.r.n. for anxiety Hospital course: 11/14 slept well; feeling better; SI pretty much resolving. Talked about chronic pessimism...but fights against it shared about they feels emotionally hurt all the time regarding their sensitive nature and empathy for people suffering in the world. Discussed transitioning which started 2 months ago; thinks it could be somewhat contributory but benefits of it outway any side-effects. 11/16/24: Continue tx Plan: CV Q 15 minute checks Increase Lexapro to 20 mg daily Increase Wellbutrin XL to 450 mg daily Add clonidine p.r.n. for anxiety Otherwise continue home medication regimen Reason for continued inpatient stay Substantial Risk for: rapid decompensation Time Spent With Patient Time: Total time managing care of this patient today ____ minutes.
[2024-11-16 08:00] VITALS: BP 100/57; PULSE 65; RESP 18; TEMP 36.8; O2SAT 97
[2024-11-16] MEDS: Escitalopram Oxalate 20 MG TABLET PO (08:20)
[2024-11-16] MEDS: buPROPion HCl XL 150 MG TAB.ER.24H 450 MG PO (08:20)
[2024-11-16] MEDS: Spironolactone 25 MG TABLET 200 MG PO (08:20)
[2024-11-16] MEDS: estradioL 0.5 MG TABLET 4 MG PO (08:22)
[2024-11-16 19:34] VITALS: BP 109/67; PULSE 90; TEMP 37.1; O2SAT 99
[2024-11-16] MEDS: estradioL 0.5 MG TABLET 2 MG PO (20:47)
[2024-11-16] MEDS: Spironolactone 25 MG TABLET 100 MG PO (20:47)
[2024-11-16] MEDS: Gabapentin 300 MG CAPSULE PO (20:48)
[2024-11-16] MEDS: traZODone HCL 50 MG TABLET PO ×2 (20:48→22:18)
[2024-11-17 08:00] VITALS: BP 111/56; PULSE 72; TEMP 36.4; O2SAT 98
[2024-11-17] MEDS: buPROPion HCl XL 150 MG TAB.ER.24H 450 MG PO (08:54)
[2024-11-17] MEDS: Escitalopram Oxalate 20 MG TABLET PO (08:54)
--- NOTE | 2024-11-17 10:20 | P.PNPSI_ITS ---
Subjective Subjective Date of Service: 11/17/24 Reason For Visit: SI Interim History: met with patient; discussed with team; reviewed chart pt reports feeling much better and that depression is mostly resolved, saying it's a 2/10; no SI at all; still feeling anxious but less so. Pt is future oriented. He feels ready for discharge and wants to get back to life responsibilities, school, etc.. Pt had family meeting w/ mother and safia at school. They feel safe. Mental Status Exam Mental Status Exam Narrative: Pt is alert and oriented; behavior is cooperative, friendly and calm; patient is not in distress; dressed in casual attire with long, unkempt hair but adequate hygiene; mood is described as good and affect congruent; eye contact appropriate; Speech is normal rate, volume and prosody and not pressured; no psychomotor agitation/retardation present; thought process is organized and goal directed; Thought content is on tx; otherwise pertinent to relevant topics and without any delusional content, paranoid ideations or grandiosity; denies any SI/HI. Denies AVH and there is no evidence of perceptual disturbance. Patients insight and judgment appear intact. Diagnostics Vital Signs (24Hr): Vital Signs - 24 hr 11/16/24 19:34 Temperature 98.8 F Pulse Rate 90 Blood Pressure 109/67 Pulse Oximetry 99 Oxygen Delivery Method Room Air BMI result Body Mass Index 29.2 Labs 11/11/24 17:43 11/13/24 07:43 Medications Medications Current Medications Acetaminophen (Acetaminophen 325 Mg Tablet) 650 mg PO Q6H PRN PRN Reason: Headache/Pain, Scale 1-10 Last Admin: 11/15/24 18:45 Dose: 650 mg Al Hydroxide/Mg Hydroxide (Magnesium Hydrox/Alum Hydrox 30 Ml Oral.Susp) 30 ml PO Q6H PRN PRN Reason: Heartburn/Nausea Bupropion HCl (Bupropion Hcl Xl 150 Mg Tab.Er.24h) 450 mg PO DAILY [facility] Last Admin: 11/17/24 08:54 Dose: 450 mg Clonidine HCl (Clonidine Hcl 0.1 Mg Tablet) 0.1 mg PO Q4H PRN; Protocol PRN Reason: moderate anxiety Escitalopram Oxalate (Escitalopram Oxalate 20 Mg Tablet) 20 mg PO DAILY [facility] Last Admin: 11/17/24 08:54 Dose: 20 mg Estradiol (Estradiol 0.5 Mg Tablet) 2 mg PO BEDTIME [facility] Last Admin: 11/16/24 20:47 Dose: 2 mg Estradiol (Estradiol 0.5 Mg Tablet) 4 mg PO DAILY [facility] Last Admin: 11/16/24 08:22 Dose: 4 mg Gabapentin (Gabapentin 300 Mg Capsule) 300 mg PO BEDTIME [facility] Last Admin: 11/16/24 20:48 Dose: 300 mg Hydroxyzine HCl (Hydroxyzine Hcl 25 Mg Tablet) 25 mg PO Q6H PRN PRN Reason: mild anxiety Magnesium Hydroxide (Milk Of Magnesia 30 Ml Oral.Susp) 30 ml PO DAILY PRN PRN Reason: Constipation Nicotine (Nicotine 21 Mg Patch.Td24) 21 mg TRANSDERMA DAILY PRN PRN Reason: smoking cessation Nicotine Polacrilex (Nicotine Polacrilex 2 Mg Gum) 4 mg BUCCAL Q2H PRN PRN Reason: Nicotine Cravings Olanzapine (Olanzapine 5 Mg Tablet) 5 mg PO TID PRN PRN Reason: agitation Spironolactone (Spironolactone 25 Mg Tablet) 100 mg PO BEDTIME [facility]; Protocol Last Admin: 11/16/24 20:47 Dose: 100 mg Spironolactone (Spironolactone 25 Mg Tablet) 200 mg PO DAILY [facility]; Protocol Last Admin: 11/16/24 08:20 Dose: 200 mg Trazodone HCl (Trazodone Hcl 50 Mg Tablet) 50 mg PO BEDTIME MRX1 PRN PRN Reason: Insomnia Last Admin: 11/16/24 22:18 Dose: 50 mg Allergies Allergies Allergy/AdvReac Type Severity Reaction Status Date / Time No Known Allergies Allergy Verified 11/11/24 17:31 Assessment & Plan Assessment & Plan (1) MDD (major depressive disorder), recurrent severe, without psychosis: Status: Acute Code(s): F33.2 - Major depressive disorder, recurrent severe without psychotic features (2) Autistic spectrum disorder: Status: Acute Code(s): F84.0 - Autistic disorder (3) Anxiety disorder, unspecified: Status: Acute Code(s): F41.9 - Anxiety disorder, unspecified Plan HPI: Patient is a 24-year-old trans male, senior at [employer], with history of MDD, anxiety, ASD who presents for worsening depression and suicidal ideation with a plan in the face of mounting psychosocial stressors. Patient reports that they have chronic SI which comes and goes but is generally fleeting and tolerable; they have a history of severe depressive episodes last for over 2 weeks, but has found Lexapro and recently added Wellbutrin to be at least partially helpful. However, despite medications and therapy patient reports a slowly growing wave of depression that has been building over the past several months. 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 Patient's SI increased and pt made a suicide note; they started to form vague plans though never ended up having any intent and instead patient reached out to family members who reminded them that hope and treatment are available. Patient decided to come to the hospital for safety and treatment. Patient denies history of manic type behaviors or episodes; denies AVH; patient denies history of trauma. Denies drug or alcohol abuse other than intermittent cannabis Formulation/clinical reasoning: Chronic depression partially treated by current medications, that has been worsening over the past months. Increased Suicidality seems to have been triggered by recent financial stress; patient benefits from supportive family who helped them reconsider suicide and instead reach out for help. Regarding medication: Since both Lexapro and Wellbutrin have been at least partially helpful, patient agrees to increase both; patient has been on Lexapro 25 mg in the past which was well tolerated and effective. Patient does not want to risk being underdosed and so wants to increase both medications at the same time with which leader writer agrees. Adding clonidine as a p.r.n. for anxiety Hospital course: 11/14 slept well; feeling better; SI pretty much resolving. Talked about chronic pessimism...but fights against it shared about they feels emotionally hurt all the time regarding their sensitive nature and empathy for people suffering in the world. Discussed transitioning which started 2 months ago; thinks it could be somewhat contributory but benefits of it outway any side-effects. 11/16/24: Continue tx 11/17 pt reports feeling much better and that depression is mostly resolved, saying it's a 2/10; no SI at all; still feeling anxious but less so. Pt is future oriented. He feels ready for discharge and wants to get back to life responsibilities, school, etc.. Pt had family meeting w/ mother and safia at school. They feel safe. -sleeping; tolerating medications well Patient has remained in good behavioral and impulse control throughout their time in the unit; they have been appropriate with peers and staff and engaged in treatment. Depression significantly reduced and SI has remained fully resolved. Patient has established providers with whom they have a good rapport. Patient asking for discharge, feeling safe; patient has also demonstrated willingness and ability to reach out for help when feeling otherwise. Patient is not in imminent risk for harm to self or others and appropriate to return to the community for treatment. Request for discharge honored. Plan: CV Q 15 minute checks Increase Lexapro to 20 mg daily Increase Wellbutrin XL to 450 mg daily Add clonidine p.r.n. for anxiety Otherwise continue home medication regimen Patient educated on: diagnosis, medication risk/benefits and therapeutic strategies Informed Consent: understands Reason for continued inpatient stay Substantial Risk for: stable for discharge Time Spent With Patient Time: Total time managing care of this patient today ____ minutes.
[2024-11-17] MEDS: estradioL 0.5 MG TABLET 4 MG PO (11:53)
[2024-11-17 11:57] VITALS: BP 123/69
[2024-11-17] MEDS: cloNIDine HCL 0.1 MG TABLET PO (11:57)
[2024-11-17 12:28] VITALS: BP 126/69
[2024-11-17] MEDS: Spironolactone 25 MG TABLET 200 MG PO (12:28)
--- NOTE | 2024-11-17 12:34 | PC.NURSE ---
spironoloctone and estrace administered late due to meds not being available at the pharmacy.
[2024-11-17 19:31] VITALS: BP 113/58; PULSE 108; TEMP 36.8; O2SAT 97
[2024-11-17] MEDS: Gabapentin 300 MG CAPSULE PO (20:34)
[2024-11-17] MEDS: estradioL 0.5 MG TABLET 2 MG PO (20:34)
[2024-11-17] MEDS: Spironolactone 25 MG TABLET 100 MG PO (20:35)
[2024-11-17] MEDS: traZODone HCL 50 MG TABLET PO (20:35)
[2024-11-18 08:00] VITALS: BP 101/60; PULSE 88; RESP 16; TEMP 36.2; O2SAT 99
[2024-11-18] MEDS: buPROPion HCl XL 150 MG TAB.ER.24H 450 MG PO (08:14)
[2024-11-18 08:15] VITALS: BP 98/59
[2024-11-18] MEDS: Spironolactone 25 MG TABLET 200 MG PO (08:15)
[2024-11-18] MEDS: estradioL 0.5 MG TABLET 4 MG PO (08:17)
[2024-11-18] MEDS: Escitalopram Oxalate 20 MG TABLET PO (08:19)
--- NOTE | 2024-11-18 09:19 | P.DS_ITS ---
DS: Providers Provider Date of Service: 11/18/24 Date of admission: 11/12/24 15:25 Date of discharge: 11/18/24 Primary care physician: Unknown Physician Attending physician on admission: Balta Mendes Attending physician on discharge: Balta Mendes DS: Diagnosis Discharge Diagnosis (1) MDD (major depressive disorder), recurrent severe, without psychosis: Status: Acute (2) Autistic spectrum disorder: Status: Acute (3) Anxiety disorder, unspecified: Status: Acute DS: Medications Discharge Medications Home Medications: Home Medications ?Medication ?Instructions ?Recorded ?Confirmed estradiol 2 mg tablet 2 mg PO BEDTIME 11/11/24 11/11/24 estradiol 2 mg tablet 4 mg PO DAILY 11/11/24 11/11/24 spironolactone 100 mg tablet 100 mg PO BEDTIME 11/11/24 11/11/24 spironolactone 100 mg tablet 200 mg PO DAILY 11/11/24 11/11/24 Previous Rx's ?Medication ?Instructions ?Recorded bupropion HCl 150 mg tablet,12 hr 150 mg PO DAILY 30 days #30 tabs 11/18/24 sustained-release bupropion HCl 300 mg 24 hr tablet, 300 mg PO QAM 30 days #30 tabs 11/18/24 extended release escitalopram oxalate 20 mg tablet 20 mg PO DAILY 30 days #30 tabs 11/18/24 gabapentin 300 mg capsule 300 mg PO BEDTIME 30 days #30 caps 11/18/24 trazodone 50 mg tablet 50 mg PO BEDTIME PRN Insomnia 30 11/18/24 days #30 tabs Mental Status Exam Mental Status Exam Narrative: Pt is alert and oriented; behavior is cooperative, friendly and calm; patient is not in distress; dressed in casual attire with long, unkempt hair but adequate hygiene; mood is described as good and affect congruent; eye contact appropriate; Speech is normal rate, volume and prosody and not pressured; no psychomotor agitation/retardation present; thought process is organized and goal directed; Thought content is on discharge; otherwise pertinent to relevant topics and without any delusional content, paranoid ideations or grandiosity; denies any SI/HI. Denies AVH and there is no evidence of perceptual disturbance. Patients insight and judgment fair Data Data Completed and Pending Completed studies during hospitalization [Text1]: 11/11/24 11/11/24 11/13/24 17:43 20:58 07:43 WBC 7.8 RBC 5.45 Hgb 16.0 Hct 45.8 MCV 84.0 MCH 29.4 MCHC 34.9 RDW 12.6 Plt Count 378 MPV 9.5 Immature Gran % (Auto) 0.3 Neut % (Auto) 72.9 Lymph % (Auto) 18.8 L [place] % (Auto) 6.4 Eos % (Auto) 1.3 Baso % (Auto) 0.3 Lymph # (Auto) 1.5 [place] # (Auto) 0.5 Eos # (Auto) 0.1 Baso # (Auto) 0.0 Abs Immat Gran (auto) 0.02 Absolute Neuts (auto) 5.7 Absolute Nucleated RBC 0.000 Nucleated RBC % (auto) 0.0 Sodium 138 138 Potassium 4.1 3.8 Chloride 108 103 Carbon Dioxide 23 28 Anion Gap 11 L 11 L BUN 16 15 Creatinine 1.10 1.05 Estim Creat Clear Calc 123.5 137.8 Estimated GFR > 60 > 60 Random Glucose 121 H 96 Estimat Average Glucose 103 Hemoglobin A1c % 5.2 Calcium 9.0 9.9 D Magnesium 2.1 Total Bilirubin 1.1 H 1.1 H AST 22 21 ALT 29 34 Alkaline Phosphatase 61 62 Total Protein 6.9 7.2 Albumin 4.2 4.2 Triglycerides 179 H Cholesterol 201 H LDL Cholesterol, Calc 125 H HDL Cholesterol 41 Lipase 29 TSH 1.02 Urine Color Yellow Urine Appearance Clear Urine pH 6.5 Ur Specific [place] 1.025 Urine Protein Negative Urine Glucose (UA) Negative Urine Ketones Trace Urine Blood Negative Urine Nitrite Negative Ur Leukocyte Esterase Negative Salicylates < 5.0 L Urine Opiates Screen Not Detected Ur Buprenorphine Scrn Not Detected Ur Oxycodone Screen Not Detected Urine Methadone Screen Not Detected Urine Fentanyl Screen Not Detected Acetaminophen < 3 Ur Barbiturates Screen Not Detected Ur Phencyclidine Scrn Not Detected Ur Amphetamines Screen Not Detected U Benzodiazepines Scrn Not Detected Urine Cocaine Screen Not Detected U Marijuana (THC) Screen POSITIVE H Ethyl Alcohol < 10 DS: Summary Hospital Course Hospital Course: HPI: Patient is a 24-year-old trans male, 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 Patient reports that they have chronic SI which comes and goes but is generally fleeting and tolerable; they have a history of severe depressive episodes last for over 2 weeks, but has found Lexapro and recently added Wellbutrin to be at least partially helpful. However, despite medications and therapy patient reports a slowly growing wave of depression that has been building over the past several months. This past week, their depression worsened as patient struggled with the stress at school and poor [employer] package; this financial stress triggered a bout of despair and hopelessness and patient started thinking I can not keep going on like this... Patient's SI increased and pt made a suicide note; they started to form vague plans though never ended up having any intent and instead patient reached out to family members who reminded them that hope and treatment are available. Patient decided to come to the hospital for safety and treatment. Patient denies history of manic type behaviors or episodes; denies AVH; patient denies history of trauma. Denies drug or alcohol abuse other than intermittent cannabis Hospital course/Formulation/clinical reasoning: Chronic depression partially treated by current medications, that has been worsening over the past months. Increased Suicidality seems to have been triggered by recent financial stress; patient benefits from supportive family who helped them reconsider suicide and instead reach out for help. Regarding medication: Since both Lexapro and Wellbutrin have been at least partially helpful, patient agrees to increase both; patient has been on Lexapro 25 mg in the past which was well tolerated and effective. Patient does not want to risk being underdosed and so wants to increase both medications at the same time with which verse writer agrees. Adding clonidine as a p.r.n. for anxiety Soon, patient started feeling better; sleeping well and reports that SI pretty much resolving. Talked about chronic pessimism...but fights against it; shared about they feels emotionally hurt all the time regarding their sensitive nature and empathy for people suffering in the world. Discussed transitioning which started 2 months ago; thinks it could be somewhat contributory but benefits of it outway any side-effects. Over subsequent days pt reports feeling much better and that depression is mostly resolved, saying it's a 2/10; no SI at all; still feeling anxious but less so. Pt is future oriented. He feels ready for discharge and wants to get back to life responsibilities, school, etc.. Pt had family meeting w/ mother and safia at school. They feel safe. Impression: Patient has remained in good behavioral and impulse control throughout their time in the unit; they have been appropriate with peers and staff and engaged in treatment. Depression significantly reduced and SI has remained fully resolved. Patient has established providers with whom they have a good rapport. Patient asking for discharge, feeling safe; patient has also demonstrated willingness and ability to reach out for help when feeling otherwise. Patient is not in imminent risk for harm to self or others and appropriate to return to the community for treatment. Request for discharge honored. Medications Increased Lexapro to 20 mg daily Increases Wellbutrin XL to 450 mg daily Started trazodone p.r.n. for sleep Time spent discussing smoking cessation with patient: 3 to 10 minutes Status at Discharge Functional status at discharge: independent ambulation Overall status at discharge: patient is back to baseline Time Spent with Patient Time attestation: Total time managing care of this patient today _40___ minutes. Time spent: Greater than 30 minutes Discharge Plan Discharge Anticipated Discharge Date/Time: 11/18/24 10:30 Patient Disposition: Home, Self-Care Discharge Diagnosis: MDD, recurrent, severe without psychosis, in (near full) remission Referrals: Psychiatry with Ness PEÑALOZA [Other] - 1 Week [facility] Jessica Espinal [Other] - 11/21/24 12:00 pm [facility] Chencho Aguilar [Other] - 1 Week Physician,Rojelio J [Primary Care Provider] - 1 Week Discharge Medications: New bupropion HCl 300 mg tablet extended release 24 hr 300 mg PO QAM 30 Days Qty: 30 0RF Rx Instructions: Take with 150 mg tablet trazodone 50 mg Tablet 50 mg PO BEDTIME PRN (Reason: Insomnia) 30 Days Qty: 30 0RF Continued spironolactone 100 mg tablet 100 mg PO BEDTIME Rx Instructions: Take 2 tablets in the am and 1 tablet in the evening estradiol 2 mg tablet 2 mg PO BEDTIME Rx Instructions: Take 2 tablets in the am and 1 tablet in the evening spironolactone 100 mg tablet 200 mg PO DAILY estradiol 2 mg tablet 4 mg PO DAILY gabapentin 300 mg capsule 300 mg PO BEDTIME 30 Days Qty: 30 0RF Changed bupropion HCl 150 mg tablet sustained-release 12 hr 150 mg PO DAILY 30 Days Qty: 30 0RF Rx Instructions: Take with 300 mg tablet escitalopram oxalate 20 mg tablet 20 mg PO DAILY 30 Days Qty: 30 0RF Discharge Orders: Discharge Order (Routine); Ordered 11/18/24 Ordered By: Balta Mendes Diet: Regular diet Activity on Discharge: As tolerated Stand Alone Forms: Patient Portal Discharge page Print Language: [place] Care Plan Goals: Maintain mood and safe behaviors Take medications as prescribed Practice coping skills Continue with outpatient providers and reach out to them as needed Health Concerns: Mood stability and behaviors Plan of Treatment: Follow up with your PCP, psychiatric provider and other outpatient providers regarding above concerns Take medications as prescribed Assessment: Risk assessment at time of discharge:? Patient was interviewed prior to discharge and found to be fully oriented and without any SI or HI. Patient has improved insight and judgment and wants to continue treatment. Patient is not in imminent risk of harm to self or others and has a safety plan that includes presenting to the closest ER or calling 911 if feeling unsafe.? Patient has been observed closely by nursing and unit staff throughout admission; patient has not engaged in any behaviors that suggest dangerousness to self or others and has demonstrated appropriate behaviors and impulse control
== END 2024-11-18 10:38 | disposition home or self-care (01) | DRG 751 ==
LOC: HO.ED 20:52 → HO.PM5 11-12 15:36
PROVIDERS: Physician Assistant Medical; Admitting Provider Psychiatry & Neurology Psychiatry; Emergency Provider Internal Medicine; Visit Provider Psychiatry & Neurology Psychiatry
DX: F33.2 Major depressive disorder, recurrent severe without psychotic features (principal); R45.851 Suicidal ideations; F41.9 Anxiety disorder, unspecified; F84.0 Autistic disorder; F64.0 Transsexualism; Z79.899 Other long term (current) drug therapy
CPT/HCPCS: 36415; 80053; 80061; 80143; 80179; 80307; 81003; 83036; 83690; 83735; 84443; 85025; 93005; 99285; S9485

== ENCOUNTER → 2024-11-12 08:52 | Outpatient (BNV) | payer BC, SELFPAY | PROVIDERS: Admitting Provider Psychiatry & Neurology Psychiatry; Emergency Provider Internal Medicine; Visit Provider Internal Medicine | DX: Z13.6 Encounter for screening for cardiovascular disorders (principal) | CPT/HCPCS: 93010 ==

== ENCOUNTER → 2024-11-12 15:25 | Outpatient (BNV) | payer BC, SELFPAY | PROVIDERS: Admitting Provider Psychiatry & Neurology Psychiatry; Emergency Provider Internal Medicine; Visit Provider Psychiatry & Neurology Psychiatry | DX: F33.2 Major depressive disorder, recurrent severe without psychotic features (principal); F84.0 Autistic disorder; F41.9 Anxiety disorder, unspecified | CPT/HCPCS: 90792; 99231; 99232; 99239 ==